=== PATIENT | female | born 1955 ===

== ENCOUNTER 2017-07-05 07:58 | Outpatient (CLI) | payer OTHER ==
[~2017-07-05] VITALS: Ht 152.4 cm; Wt 64.4 kg
== END 2017-07-05 08:15 | disposition home or self-care (01) ==
LOC: OFIC 805 07:58
DX: H61.23 Impacted cerumen, bilateral (principal); H90.6 Mixed conductive and sensorineural hearing loss, bilateral; J31.0 Chronic rhinitis; H69.83 Other specified disorders of Eustachian tube, bilateral

== ENCOUNTER 2022-09-07 10:51 | Inpatient (IN) | payer OTHER ==
[~2022-09-07] VITALS: Ht 160 cm; Wt 108.9 kg
[2022-09-10] MEDS ORDERED: CRESTOR20 MG PO (13:53)
[2022-09-10] MEDS ORDERED: TENORMIN100 M1 PO (13:53)
[2022-09-10] MEDS ORDERED: NORVASC2.5 MG PO (13:53)
[2022-09-10] MEDS ORDERED: PEPCID AC20 MG PO (13:54)
[2022-09-10] MEDS ORDERED: DETROL2 MG PO (13:54)
[2022-09-10] MEDS ORDERED: CYMBALTA60 MG PO (13:54)
[2022-09-10] MEDS ORDERED: SYNTHROID137 MCG PO (13:55)
[2022-09-10] MEDS ORDERED: WIXELA 500-501 EACH IH (13:55)
[2022-09-10] MEDS ORDERED: WELLBUTRIN SR150 MG PO (13:55)
[2022-09-10] MEDS ORDERED: METFORMIN HCL500 M3 PO (13:55)
[2022-09-13] MEDS ORDERED: LOSARTAN POTAS100 MG (08:58)
[2022-09-13] MEDS ORDERED: A/F PAIN RELIE500 MG (08:59)
[2022-09-13] MEDS ORDERED: AMLODIPINE BESYL5 MG (08:59)
[2022-09-13] MEDS ORDERED: ATENOLOL-CHLORT1 TAB (08:59)
[2022-09-13] MEDS ORDERED: LORAZEPAM1 MG (09:00)
[2022-09-13] MEDS ORDERED: ACETAMINOPHEN-1 EAC2 PO (10:10)
[2022-09-13] MEDS ORDERED: AMOX-CLAV 875-1 EACH PO (10:11)
[2022-09-13] MEDS ORDERED: MEDROLPACK PO (10:11)
[2022-09-13] MEDS ORDERED: COLACE100 MG PO (10:12)
[2022-09-13] MEDS ORDERED: LYRICA150 MG PO (10:12)
== END 2022-09-14 13:33 | disposition home or self-care (01) | DRG 509 ==
LOC: SURH 09-13 06:05 → O/R 09-13 06:05 → SURG 09-13 10:30 → SURH 09-13 13:24
PROVIDERS: ADMIT Orthopaedic Surgery Orthopaedic Surgery of the Spine; ATTEND Orthopaedic Surgery Orthopaedic Surgery of the Spine
PROC: 01NB0ZZ Release Lumbar Nerve, Open Approach (ICD-10-PCS; 2022-09-13)
PROC: 0SP004Z Removal of Internal Fixation Device from Lumbar Vertebral Joint, Open Approach (ICD-10-PCS; 2022-09-13)
PROC: 0SJ Lower Joints, Inspection (ICD-10-PCS; principal; 2022-09-13 10:30)
DX: M48.062 Spinal stenosis, lumbar region with neurogenic claudication (principal); E11.9 Type 2 diabetes mellitus without complications; E03.9 Hypothyroidism, unspecified; I10 Essential (primary) hypertension